=== PATIENT | female | born 1970 ===

== ENCOUNTER 2022-06-11 05:04 | Day surgery (SDC) | payer OTHER ==
[~2022-06-11] VITALS: Ht 167.6 cm; Wt 74.4 kg
[~2022-06-11 05:04] MED LIST: CLONAZEPAM0.5 MG PO; ZOLOFT50 MG PO
== END 2022-06-11 11:05 | disposition home or self-care (01) ==
LOC: CIR.AMB 05:04
PROVIDERS: ATTEND Specialist
DX: K80.10 Calculus of gallbladder with chronic cholecystitis without obstruction (principal); K76.0 Fatty (change of) liver, not elsewhere classified; K59.00 Constipation, unspecified; K21.9 Gastro-esophageal reflux disease without esophagitis; F41.8 Other specified anxiety disorders; Z20.822 Contact with and (suspected) exposure to COVID-19